=== PATIENT | female | born 1950 | race Caucasian/White ===

== ENCOUNTER → 2017-12-21 | Outpatient (CLI) | payer OTHER | END | disposition home or self-care (01) | LOC: PLD 13:30 → LAB SHORT 13:30 | DX: D22.5 Melanocytic nevi of trunk (principal); D22.62 Melanocytic nevi of left upper limb, including shoulder | CPT/HCPCS: 88305 ==

== ENCOUNTER → 2018-01-16 | Outpatient (CLI) | payer OTHER | END | disposition home or self-care (01) | LOC: LAB SHORT 13:13 → PLD 13:13 | DX: D22.62 Melanocytic nevi of left upper limb, including shoulder (principal); D22.5 Melanocytic nevi of trunk | CPT/HCPCS: 88305 ==

== ENCOUNTER 2019-05-27 00:49 | Inpatient (IN) | payer MEDICARE ==
[~2019-05-27] VITALS: Ht 162.6 cm; Wt 106.2 kg
[2019-05-27] MEDS ORDERED: LITH300C PO (01:05)
[2019-05-27] MEDS ORDERED: VENL25 PO (01:05)
[2019-05-27] MEDS ORDERED: Pravachol40 MG PO (01:06)
[2019-05-27] MEDS ORDERED: QVAR REDIHALE10.6 G1 INH (01:06)
[2019-05-27] MEDS ORDERED: Prinivil10 MG PO (01:06)
[2019-05-27] MEDS ORDERED: CALCIUM + D3 E1 EACH PO (01:07)
[2019-05-27] MEDS ORDERED: L-METHYLFOLATE15 MG PO (01:07)
[2019-05-27] MEDS ORDERED: GLUC500 PO (01:07)
[2019-05-27] MEDS ORDERED: CENTRUM SILVER1 EAC2 PO (01:08)
[2019-05-27] MEDS ORDERED: COQ-10100 MG PO (01:09)
[2019-05-27] MEDS ORDERED: VITAMIN D31000 UNIT PO (01:09)
[2019-05-27] MEDS ORDERED: KRILL OIL PO (01:09)
[2019-05-27] MEDS ORDERED: POTASSIUM99 MG PO (01:10)
[2019-05-27] MEDS ORDERED: Vitamin B-121000 MCG PO (01:10)
[2019-05-27] MEDS ORDERED: Aspirin EC81 MG PO (01:10)
[2019-05-27 01:15] LABS: Hemoglobin 15.8 g/dL (11.5-16.0); Mean Corpuscular HGB 32.2 pg (26.0-34.0); Mean Corpuscular HGB Conc 32.2 g/dL (31.5-36.5); Mean Corpuscular Volume 100 fL (80-100); Mean Platelet Volume 10.3 fL (9.1-12.4); Platelet Count 226 K/mm3 (150-400); RDW Coefficient Variation 13.2 % (11.7-14.2); RDW Standard Deviation 48.6 fL (35.1-46.3); White Blood Cell Count 13.54 K/mm3 (4.00-11.30)
[2019-05-27 01:34] LABS: Albumin, Blood 3.5 g/dL (3.4-5.0); Bilirubin, Total 1.3 mg/dL (0.1-1.0); Bun/Creatinine Ratio 15.1 (12.0-20.0); Calcium, Blood 9.8 mg/dL (8.5-10.1); Creatinine, Blood 1.39 mg/dL (0.40-1.00); Globulin, Blood 3.6 g/dL (2.2-4.0); Magnesium, Blood 2.2 mg/dL (1.6-2.4); Potassium, Blood 3.7 mmol/L (3.5-5.5); Total Protein, Blood 7.1 g/dL (6.4-8.2)
[2019-05-27 01:40] LABS: BAND PERCENT MAN 24 % (0-8); BASOPHILS PERCENT MAN 0 % (0-2); EOSINOPHILS ABSOLUTE MAN 0.13 K/mm3 (0.00-0.68); EOSINOPHILS PERCENT MAN 1 % (0-6); LYMPHOCYTES PERCENT MAN 3 % (21-46); METAMYELOCYTE ABSOLUTE MAN 0.27 K/mm3 (0.00-0.00); METAMYELOCYTE PERCENT MAN 2 % (0-0); MONOCYTES ABSOLUTE MAN 0.13 K/mm3 (0.16-1.47); MONOCYTES PERCENT MAN 1 % (4-13); MYELOCYTE ABSOLUTE MAN 0.13 K/mm3 (0.00-0.00); MYELOCYTE PERCENT MAN 1 % (0-0); NEUTROPHILS ABSOLUTE MAN 12.45 K/mm3 (1.96-9.15); SEG NEUTROPHILS PERCENT MAN 68 % (41-73); TOTAL CELLS COUNTED 100
--- NOTE | 2019-05-27 07:18 | NUR ---
ASSUMED CARE NOTE/SHIFT SUMMARY ASSUMED CARE OF PT AT 0449, RECEVIED REPORT FROM EMILY ER NURSE. PT ARRIVED TO UNIT VIA STRETCHER, PT WAS TRANSFERED TO HOSPITAL BED USING SLIDER SHEET WITH 4 PERSON ASSISTANCE. PT IS ALERT AND ORIENTED, IS ABLE TO RECALL RECENT AND REMOTE EVENTS. PT ON RA WITH SPO2 ABOVE 90%. PT IN SINUS ARRYTHMIA. PT C/O LLQ PAIN 5/10, AND RLE 6/10. PT USED BEDPAN TO URINATE, URINE DARK YELLOW. PT ORIENTED TO ROOM, CALL LIGHT WITHIN REACH, BED AT LOWEST LEVEL. GAVE REPORT TO PEACE SANTOS.
--- NOTE | 2019-05-27 09:00 | NUR ---
BEGINNING OF SHIFT Assumed care of pt at 0700. Bedside report recieved from Heidy SANTOS. Pt A&O x 4. On room air. Lungs clear, dim in bases. SR per monitor. NPO. NG tube to LIS. liquid brown drainage from NG tube. Pt voids dark, tea colored urine into bedpan. Pt does not report pain at this time. Bed in lowest position. Call light in reach. Pt denies need at this time.
--- NOTE | 2019-05-27 11:45 | NUR ---
CALL PLACED TO [facility] This RN called to inquire about pt weightbearing status as this is not clearly stated in pt's paperwork in chart. Pt is to be non-weightbearing. Inquired if wrapping may be removed to assess skin underneath, [facility] staff stated this is allowed, however the wrap will need to be replaced.
--- NOTE | 2019-05-27 12:00 | NUR ---
DR CADENATRATE IN ROOM Inquired about orders for PT/OT as pt is supposed to be nonweightbearing for RLE. New orders provided. Pt also okay for medical floor status without telemetry.
--- NOTE | 2019-05-27 14:39 | NUR ---
UPDATE TO DR ASCENCIO / TRANSFER TO SURGICAL FLOOR Provider aware that pt is passing stool. Notified provider that pt has had 4 large liquid BMs in the last hour. Notified provider that pt received 100 mg colace this AM. Discussed CT results. Plan to send C-Diff sample. Pt working with physical therapy at this time. Plan for pt to transfer to room 210. Telephone report given to Lilibeth SANTOS.
[2019-05-27 15:14] LABS: Source, Urine Clean Catch
[2019-05-27 15:26] LABS: Blood, Urine 3+ (Neg); Glucose Qualitative, Urine Neg (Neg); Ketones, Urine 1+ (Neg); Leukocyte Esterase, Urine 1+ (Neg); Nitrite, Urine Neg (Neg); Protein, Urine 1+ (Neg); Specific Gravity, Urine 1.025 (1.003-1.022); Urobilinogen, Urine 2+ (Normal)
[2019-05-27 15:51] LABS: Bilirubin, Urine 1+ (Neg)
[2019-05-27 16:22] LABS: Appearance, Urine Cloudy (Clear); Color, Urine Brown (P-Yellow)
[2019-05-27 16:23] LABS: Other Crystals Mod /hpf
[2019-05-27 16:25] LABS: Bacteria Mod /hpf; Squamous Epithelial Cells Mod /hpf (Few)
--- NOTE | 2019-05-27 18:31 | NUR ---
SUMMARY SINCE ARRIVAL TO UNIT AROUND 1500, PT HAS BEEN SLEEPY. REPORTS IT TO DOING THERAPY AND UP TO USE BSC. PT HAS BECOME FORGETFUL THIS AFTERNOON, WHEN ASKED ABOUT IT SHE DESCRIBES HERSELF "LOOPY". WAS FOUND ON THE BSC ONCE WITHOUT ASSISTANCE AND STATED SHE HAD "SOME DIFFICULTY" GETTING THERE [facility] WHEN SHE WOKE UP SHE DIDN'T KNOW WHERE SHE WAS AT FIRST. WHEN ASKED IF THIS HAS HAPPENED IN THE PAST SHE STATES IT DOES HAPPEN AT HOME SOMETIMES WHERE SHE IS DISORIENTED WHEN WAKING. BED ALARM HAS BEEN IN USE SINCE. PT HAD VERY LARGE FORMED BM. NGT PUTING OUT SCANT AMOUNT.
--- NOTE | 2019-05-28 04:25 | NUR ---
SHIFT SUMMARY AAOX4 VSS. PATIENT HAS BEEN UP TO BSC WITH FWW AND GB. 1 SMALL LOOSE BM TONIGHT. PT REPORTED FEELING MUCH BETTER SINCE BM DURING DAY SHIFT. DENIED PAIN OR NAUSEA DURING SHIFT. BOWEL SOUNDS WERE ACTIVE, REPORTS PASSING GAS. NG TUBE OUTPUT IS BROWN LIQUID. SMALL AMOUNT DURING SHIFT. TOLERATING ICE CHIPS WELL. NO MOMENTS OF CONFUSION DURING NIGHT.
[2019-05-28 04:53] LABS: BASOPHILS ABSOLUTE AUTO 0.04 K/mm3 (0.00-0.23); BASOPHILS PERCENT AUTO 0 % (0-2); Hematocrit 38.9 % (33.0-51.0); Hemoglobin 12.9 g/dL (11.5-16.0); LYMPHOCYTES PERCENT AUTO 8 % (21-46); MONOCYTES ABSOLUTE AUTO 0.57 K/mm3 (0.16-1.47); MONOCYTES PERCENT AUTO 5 % (4-13); Mean Corpuscular HGB 32.5 pg (26.0-34.0); Mean Corpuscular HGB Conc 33.2 g/dL (31.5-36.5); Mean Corpuscular Volume 98 fL (80-100); Mean Platelet Volume 11.2 fL (9.1-12.4); Platelet Count 180 K/mm3 (150-400); RDW Coefficient Variation 13.4 % (11.7-14.2); RDW Standard Deviation 47.9 fL (35.1-46.3); Red Blood Cell Count 3.97 M/mm3 (3.80-5.20)
[2019-05-28 05:02] LABS: EOSINOPHILS ABSOLUTE AUTO 0.08 K/mm3 (0.00-0.68); EOSINOPHILS PERCENT AUTO 1 % (0-6); IMMATURE GRAN ABSOLUTE AUTO 0.05 K/mm3 (0.00-0.10); IMMATURE GRAN PERCENT AUTO 0 % (0-1); NEUTROPHILS ABSOLUTE AUTO 9.96 K/mm3 (1.96-9.15); NEUTROPHILS PERCENT AUTO 86 % (41-73)
[2019-05-28 05:13] LABS: Alanine Aminotransfer (ALT/SGP 49 U/L (12-78); Albumin, Blood 2.3 g/dL (3.4-5.0); Albumin/Globulin Ratio 0.7 (0.8-1.8); Alk Phos 94 U/L (50-136); Anion Gap 9 mmol/L (6-16); Aspartate Aminotrans (AST/SGOT 47 U/L (12-37); Bilirubin, Total 0.7 mg/dL (0.1-1.0); Blood Urea Nitrogen 23 mg/dL (8-24); Bun/Creatinine Ratio 27.4 (12.0-20.0); CO2, Blood 22 mmol/L (21-32); Calcium, Blood 7.4 mg/dL (8.5-10.1); Chloride, Blood 112 mmol/L (98-108); Creatinine, Blood 0.84 mg/dL (0.40-1.00); Globulin, Blood 3.1 g/dL (2.2-4.0); Glomerular Filtration Rate >60 (60-); Glucose, Blood 110 mg/dL (70-99); Potassium, Blood 3.6 mmol/L (3.5-5.5); Sodium, Blood 143 mmol/L (136-145); Total Protein, Blood 5.4 g/dL (6.4-8.2)
[2019-05-28 05:19] LABS: BAND PERCENT MAN 27 % (0-8); BASOPHILS PERCENT MAN 0 % (0-2); EOSINOPHILS PERCENT MAN 0 % (0-6); LYMPHOCYTES ABSOLUTE MAN 0.23 K/mm3 (0.84-5.20); LYMPHOCYTES PERCENT MAN 2 % (21-46); METAMYELOCYTE ABSOLUTE MAN 0.11 K/mm3 (0.00-0.00); METAMYELOCYTE PERCENT MAN 1 % (0-0); MONOCYTES ABSOLUTE MAN 0.11 K/mm3 (0.16-1.47); MONOCYTES PERCENT MAN 1 % (4-13); NEUTROPHILS ABSOLUTE MAN 11.13 K/mm3 (1.96-9.15); SEG NEUTROPHILS PERCENT MAN 69 % (41-73); TOTAL CELLS COUNTED 100
--- NOTE | 2019-05-28 13:01 | NUR ---
Patient gave permission to see medical charts to lyndon suero Student Nurse on 05/28/19 at 13:00.
--- NOTE | 2019-05-28 14:27 | NUR ---
NG TUBE REMOVED PER DR. DOTY. PT TOLERATED WELL. WILL CONTINUE TO MONITOR.
--- NOTE | 2019-05-28 17:50 | NUR ---
SHIFT SUMMARY PAIN HAS BEEN MANAGED WITH PO PAIN MEDICATION. PT'S NG TUBE CAME OUT THIS AFTERNOON AFTER DR. DOTY CONSULTED. SHE IS TOLERATING CLEAR LIQUIDS. PT IS A 1 PERSON ASSIST WITH GAIT BELT AND WALKER. VSS. WILL MONITOR UNTIL REPORT TO ONCOMING RN.
[2019-05-29 04:49] LABS: Hematocrit 33.9 % (33.0-51.0); Hemoglobin 11.3 g/dL (11.5-16.0); Mean Corpuscular HGB 32.5 pg (26.0-34.0); Mean Corpuscular HGB Conc 33.3 g/dL (31.5-36.5); Mean Corpuscular Volume 97 fL (80-100); Mean Platelet Volume 10.7 fL (9.1-12.4); Platelet Count 165 K/mm3 (150-400); RDW Coefficient Variation 13.2 % (11.7-14.2); RDW Standard Deviation 46.7 fL (35.1-46.3); Red Blood Cell Count 3.48 M/mm3 (3.80-5.20); White Blood Cell Count 11.08 K/mm3 (4.00-11.30)
[2019-05-29 05:06] LABS: Alanine Aminotransfer (ALT/SGP 39 U/L (12-78); Albumin, Blood 2.1 g/dL (3.4-5.0); Albumin/Globulin Ratio 0.7 (0.8-1.8); Alk Phos 88 U/L (50-136); Anion Gap 8 mmol/L (6-16); Aspartate Aminotrans (AST/SGOT 31 U/L (12-37); Bilirubin, Total 0.8 mg/dL (0.1-1.0); Blood Urea Nitrogen 15 mg/dL (8-24); Bun/Creatinine Ratio 22.2 (12.0-20.0); CO2, Blood 21 mmol/L (21-32); Calcium, Blood 7.4 mg/dL (8.5-10.1); Chloride, Blood 114 mmol/L (98-108); Creatinine, Blood 0.68 mg/dL (0.40-1.00); Globulin, Blood 3.2 g/dL (2.2-4.0); Glomerular Filtration Rate >60 (60-); Glucose, Blood 89 mg/dL (70-99); Potassium, Blood 3.5 mmol/L (3.5-5.5); Sodium, Blood 143 mmol/L (136-145); Total Protein, Blood 5.3 g/dL (6.4-8.2)
[2019-05-29 05:59] LABS: BAND PERCENT MAN 6 % (0-8); BASOPHILS ABSOLUTE MAN 0.11 K/mm3 (0.00-0.23); BASOPHILS PERCENT MAN 1 % (0-2); EOSINOPHILS ABSOLUTE MAN 0.22 K/mm3 (0.00-0.68); EOSINOPHILS PERCENT MAN 2 % (0-6); LYMPHOCYTES ABSOLUTE MAN 1.32 K/mm3 (0.84-5.20); LYMPHOCYTES PERCENT MAN 12 % (21-46); MONOCYTES ABSOLUTE MAN 0.66 K/mm3 (0.16-1.47); MONOCYTES PERCENT MAN 6 % (4-13); NEUTROPHILS ABSOLUTE MAN 8.75 K/mm3 (1.96-9.15); SEG NEUTROPHILS PERCENT MAN 73 % (41-73); TOTAL CELLS COUNTED 100
--- NOTE | 2019-05-29 06:18 | NUR ---
PT VSS T/O NIGHT. PAIN MGD W/ADVIL W/REP RELIEF. SPLINT TO RLE INTACT. PT REP NO CHANGE IN SENSATION-STILL REP N/T TO R FOOT, CAP REFILL WNL. RLE ELEVATED IN BED. PT HAD NO C/O N/V, IS HAVING UNFORMED BM. IVF CONT PER ORDERS. PT USING CALL LIGHT FOR ASSISTANCE, WILL CONT TO MONITOR UNTIL REP GIVEN TO ONCOMING RN.
--- NOTE | 2019-05-29 09:49 | NUR ---
dr velatrate by to see pt dr marc also by earlier ok to adv to full diet for today will monitor how she sandra this diet will start at 1200 pt sandra cl diet for breakfast no nausea
--- NOTE | 2019-05-29 10:23 | NUR ---
mychal given new order physical therapy working with pt
--- NOTE | 2019-05-29 12:46 | NUR ---
pt stated she got full with the meal no nausea pt had loose brown bm
--- NOTE | 2019-05-29 14:28 | NUR ---
pt stated that her abd still feels ok after food
--- NOTE | 2019-05-29 18:50 | NUR ---
ASSISTED PT BACK INTO BED AFTER USING BSC PT VOIDED ONLY STATED SHE HAS HAD A FEW TIMES TODAY OF PASSING FLATUS WITHOUT STOOL ALSO ORDERED MORE SOUP
[2019-05-30 04:44] LABS: Anion Gap 7 mmol/L (6-16); Blood Urea Nitrogen 12 mg/dL (8-24); CO2, Blood 23 mmol/L (21-32); Calcium, Blood 7.8 mg/dL (8.5-10.1); Chloride, Blood 114 mmol/L (98-108); Creatinine, Blood 0.71 mg/dL (0.40-1.00); Glomerular Filtration Rate >60 (60-); Glucose, Blood 96 mg/dL (70-99); Potassium, Blood 3.3 mmol/L (3.5-5.5); Sodium, Blood 144 mmol/L (136-145)
--- NOTE | 2019-05-30 05:10 | NUR ---
SHIFT SUMMARY PT IS A/O X4. NEEDS STANDBY ASSIST W/ WALKER TO COMMODE. PT IS TOLERATING HER FULL LIQUID DIET, PASSING GAS AND HAVING BM'S AND VOIDING. DURING THE SHIFT HER R LEG HAS BEEN ELEVATED WITH ICE APPLIED. PT HAS BEEN RESTING QUIETLY MOST OF THE NIGHT. PAIN MANAGED WITH IBUPROFEN PER ORDERS. ASSISTED WITH ADL'S PRN.
[2019-05-30] MEDS ORDERED: ACET325 PO (10:23)
[2019-05-30] MEDS ORDERED: Banatrol1 EACH PO (10:24)
[2019-05-30] MEDS ORDERED: BISA10S PR (10:26)
[2019-05-30] MEDS ORDERED: Oyster Shell C500 MG PO (10:27)
[2019-05-30] MEDS ORDERED: DOC250 PO (10:27)
[2019-05-30] MEDS ORDERED: CEFP200 PO (10:27)
[2019-05-30] MEDS ORDERED: Norco 5-325 Ta1 EACH PO (10:28)
[2019-05-30] MEDS ORDERED: HYDR10 PO (10:28)
[2019-05-30] MEDS ORDERED: METR500 PO (10:29)
[2019-05-30] MEDS ORDERED: IBUP600 PO (10:29)
[2019-05-30] MEDS ORDERED: ONDA4ODT SL (10:30)
[2019-05-30] MEDS ORDERED: GAVILAX17 GM PO (10:42)
--- NOTE | 2019-05-30 14:44 | NUR ---
DISCHARGE: PT EATING AND DRINKING, VOIDING, HAVING BM'S. PT REPORTS PAIN WELL CONTROLLED WITH PO PAIN MEDICATION. PT/FAMILY REPORTS UNDERSTANDING OF DISCHARGE INSTRUCTIONS. PT WAS ASSISTED WITH DIET BY [employer] EARLIER TODAY. PT REPORTS HAVING APPR EQUIP AT HOME. SCRIPTS FAXED TO PHARMACY OF PT'S CHOICE EXCEPT PAIN SCRIPT WHICH WAS SENT WITH PT/FAMILY. PT'S BELONGINGS SENT WITH PT.
== END 2019-05-30 14:44 | disposition home health service (06) | DRG 872 ==
LOC: ER 00:49 → SURS 04:26 → ICUW 04:26 → SURS 15:08
PROVIDERS: Emergency Medicine; Family Medicine; ADMIT Internal Medicine
DX: A41.9 Sepsis, unspecified organism (principal); N17.9 Acute kidney failure, unspecified; K56.609 Unspecified intestinal obstruction, unspecified as to partial versus complete obstruction; A09 Infectious gastroenteritis and colitis, unspecified; K56.0 Paralytic ileus; R65.20 Severe sepsis without septic shock; N18.3 Chronic kidney disease, stage 3 (moderate); I12.9 Hypertensive chronic kidney disease with stage 1 through stage 4 chronic kidney disease, or unspecified chronic kidney disease; E86.0 Dehydration; I95.9 Hypotension, unspecified; F41.9 Anxiety disorder, unspecified; F31.9 Bipolar disorder, unspecified; E66.01 Morbid (severe) obesity due to excess calories; Z68.39 Body mass index [BMI] 39.0-39.9, adult; Z79.82 Long term (current) use of aspirin
CPT/HCPCS: 36415; 74018; 74176; 80048; 80053; 81001; 83605; 83690; 83735; 84145; 85025; 87040; 87086; 87493; 93005; 93010; 94640; 94760; 96361; 96365; 97110; 97116; 97162; 97166; 97530; 97535; 99285-25; A9270; J0696; J1650; J2543; J3010; J7030; J7050

== ENCOUNTER → 2020-03-09 | Outpatient (CLI) | payer MEDICARE ==
[~2020-03-09] MED LIST: ACET325 PO; Aspirin EC81 MG PO; BISA10S PR; Banatrol1 EACH PO; CALCIUM + D3 E1 EACH PO; CEFP200 PO; CENTRUM SILVER1 EAC2 PO; COQ-10100 MG PO; DOC250 PO; GAVILAX17 GM PO; GLUC500 PO; HYDR10 PO; IBUP600 PO; KRILL OIL PO; L-METHYLFOLATE15 MG PO; LITH300C PO; METR500 PO; Norco 5-325 Ta1 EACH PO; ONDA4ODT SL; Oyster Shell C500 MG PO; POTASSIUM99 MG PO; PROAIR DIGIHAL90 MCG; Pravachol40 MG PO; Prinivil10 MG PO; QVAR REDIHALE10.6 G1 INH; VENL25 PO; VITAMIN D31000 UNIT PO; Vitamin B-121000 MCG PO
== END | disposition home or self-care (01) ==
LOC: LAB SHORT 13:28 → LAB 13:28
DX: A49.9 Bacterial infection, unspecified (principal)
CPT/HCPCS: 87070; 87205

== ENCOUNTER → 2020-11-13 | Outpatient (CLI) | payer MEDICARE ==
[2020-11-13 13:17] LABS: BASOPHILS ABSOLUTE AUTO 0.08 K/mm3 (0.00-0.23); BASOPHILS PERCENT AUTO 1 % (0-2); EOSINOPHILS PERCENT AUTO 4 % (0-6); Hematocrit 47.6 % (33.0-51.0); Hemoglobin 15.7 g/dL (11.5-16.0); IMMATURE GRAN ABSOLUTE AUTO 0.01 K/mm3 (0.00-0.10); IMMATURE GRAN PERCENT AUTO 0 % (0-1); LYMPHOCYTES ABSOLUTE AUTO 2.24 K/mm3 (0.84-5.20); LYMPHOCYTES PERCENT AUTO 32 % (21-46); MONOCYTES ABSOLUTE AUTO 0.47 K/mm3 (0.16-1.47); MONOCYTES PERCENT AUTO 7 % (4-13); Mean Corpuscular HGB 32.4 pg (26.0-34.0); Mean Corpuscular Volume 98 fL (80-100); Mean Platelet Volume 10.6 fL (9.1-12.4); NEUTROPHILS ABSOLUTE AUTO 3.84 K/mm3 (1.96-9.15); NEUTROPHILS PERCENT AUTO 55 % (41-73); Platelet Count 226 K/mm3 (150-400); RDW Coefficient Variation 12.9 % (11.7-14.2); RDW Standard Deviation 46.5 fL (35.1-46.3); Red Blood Cell Count 4.85 M/mm3 (3.80-5.20); White Blood Cell Count 6.94 K/mm3 (4.00-11.30)
[2020-11-13 13:34] LABS: Albumin, Blood 4.1 g/dL (3.4-5.0); Albumin/Globulin Ratio 1.2 (0.8-1.8); Bilirubin, Total 0.3 mg/dL (0.1-1.0); Bun/Creatinine Ratio 25.5 (12.0-20.0); Calcium, Blood 9.4 mg/dL (8.5-10.1); Creatinine, Blood 0.98 mg/dL (0.40-1.00); Free Thyroxine 0.87 ng/dL (0.70-1.60); Globulin, Blood 3.5 g/dL (2.2-4.0); Potassium, Blood 4.1 mmol/L (3.5-5.5); Thyroid Stimulating Hormone 1.858 uIU/mL (0.360-4.800); Total Protein, Blood 7.6 g/dL (6.4-8.2)
== END | disposition home or self-care (01) ==
LOC: LAB 13:01 → LAB SHORT 13:01 → LAB EV 13:01
PROVIDERS: General Practice
DX: R53.81 Other malaise (principal); G60.9 Hereditary and idiopathic neuropathy, unspecified
CPT/HCPCS: 80053; 82607; 82746; 84439; 84443; 85025

== ENCOUNTER → 2022-01-11 | Outpatient (CLI) | payer MEDICARE ==
[2022-01-12 13:40] LABS: Stool Occult Bld Immuno 1 Negative (NEGATIVE)
== END | disposition home or self-care (01) ==
LOC: LAB SHORT 13:24 → LAB FUT 12-08 11:35
PROVIDERS: Family Medicine
DX: Z12.11 Encounter for screening for malignant neoplasm of colon (principal)
CPT/HCPCS: 82274

== ENCOUNTER → 2022-06-06 | Outpatient (CLI) | payer MEDICARE | END | disposition home or self-care (01) | LOC: LAB SHORT 12:40 → LAB 12:40 | DX: R35.0 Frequency of micturition (principal) | CPT/HCPCS: 87086 ==

== ENCOUNTER 2024-06-26 06:38 | Day surgery (SDC) | payer OTHER ==
[~2024-06-26] VITALS: Ht 162.6 cm; Wt 98.6 kg
[~2024-06-26 06:38] MED LIST changes: +ALBU90OI INH; +BACL10 PO; +BACLOFEN5 M1 PO; +BUDESONIDE-FO10.2 G2 INH; +Balanced Salt Epinephrine Irrigation Solution 500 mL IR SCH; +CLARITIN-D 121 EAC1 PO; +CYMBALTA30 M1 PO; +DIETARY SUPPLEMENT PO; +Diazepam 2 MG Tab PO PRN; +Diazepam 5 MG Tab PO PRN; +Diazepam 5 MG Tab PO SCH; +EZET10 PO; +GABA100 PO; +LATUDA PO; +LISI10 PO; +Lidocaine HCl/Pf 1% 5 ML VIAL XX SCH; +Moxifloxacin HCL 0.5 MG/0.1 ML 0.4MLSYR LEFTEYE SCH; +Ondansetron 4 MG SoluTab MM PRN; +PHENYLEPHRINE\\TROPICAMIDE\\TETRACAINE OPHTHALMIC DILATING SOLN LEFTEYE PRN; +Phentermine HCl30 MG PO; +Povidone-Iodine 450 DROP/30 ML Solution LEFTEYE SCH; +Povidone-Iodine 450 DROP/30 ML Solution ONE; +SYMBICORT 160-4.6 GM INH; +Tetracaine HCl/Pf 0.5% Opth Soln 4 ml ONE; +Triamcinolone Inj Susp 40 MG / ML 1ML Vial INJ SCH; +diazePAM 2 MG,diazePAM 5 MG PO SCH
[2024-06-26] MEDS ORDERED: Diazepam 10 MG Tab ONE (06:41)
[2024-06-26] MEDS ORDERED: Lidocaine HCl/Pf 1% 5 ML VIAL ONE (06:41)
[2024-06-26] MEDS ORDERED: Triamcinolone Inj Susp 40 MG / ML 1ML Vial ONE (06:41)
--- NOTE | 2024-06-26 07:24 | NUR ---
06/26/24 0724 Ade Kaur PATIENT REPORTED ANXIETY AT 3/10 PRIOR TO ADMINISTRATION OF 10MG PO VALIUM AT 0702. REASSESSED AND PATIENT REPORTS ANXIETY STILL AT 3/10 AND STATES SHE DOES NOT "FEEL THAT NERVOUS"
[2024-06-26 08:15] VITALS: BP 119/65
--- NOTE | 2024-06-26 08:33 | NUR ---
06/26/24 0833 Judy Dumont D/Anna INSTRUCTIONS GIVEN TO PT & PT'S , UNDERSTANDING VERBALIZED. PT HAS ALL BELONGINGS W/ HER. PT DENIES PAIN/NAUSEA, TOLERATING JUICE W/O COMPLAINT. VSS, ON RA. PT WHEELED TO PRIVATE VEHICLE, STEADY GAIT NOTED UPON TRANSFER FROM TO VEHICLE. NO VISIBLE SIGNS OF DISTRESS NOTED.
== END 2024-06-26 08:30 | disposition home or self-care (01) ==
LOC: ORSCSDS 06:38
PROVIDERS: Ophthalmology
PROC: 08RK3JZ Replacement of Left Lens with Synthetic Substitute, Percutaneous Approach (ICD-10-PCS; principal; 2024-06-26 08:00)
DX: H25.812 Combined forms of age-related cataract, left eye (principal); Z96.1 Presence of intraocular lens; I25.10 Atherosclerotic heart disease of native coronary artery without angina pectoris; I10 Essential (primary) hypertension; G47.33 Obstructive sleep apnea (adult) (pediatric); J45.909 Unspecified asthma, uncomplicated; E78.5 Hyperlipidemia, unspecified; K57.30 Diverticulosis of large intestine without perforation or abscess without bleeding; E66.9 Obesity, unspecified; Z68.37 Body mass index [BMI] 37.0-37.9, adult; F17.210 Nicotine dependence, cigarettes, uncomplicated; Z79.899 Other long term (current) drug therapy
CPT/HCPCS: A9270; J2003; J3301; V2632

== ENCOUNTER 2024-07-23 13:55 | Day surgery (SDC) | payer OTHER ==
[~2024-07-23] VITALS: Ht 162.6 cm; Wt 97.9 kg
[~2024-07-23 13:55] MED LIST changes: +Atropine Sulfate 0.1 MG/ML 10ML SYR ONE; -Balanced Salt Epinephrine Irrigation Solution 500 mL IR SCH; -Diazepam 2 MG Tab PO PRN; -Diazepam 5 MG Tab PO PRN; -Diazepam 5 MG Tab PO SCH; +Glycopyrrolate 0.2 MG/ML 1MLVIAL ONE; +Lactated Ringer's 1,000 ML IV ONE; +Lidocaine 2% 5 ML SDV ONE; +Lidocaine HCl/Pf 1% 5 ML VIAL ONE; -Lidocaine HCl/Pf 1% 5 ML VIAL XX SCH; -Moxifloxacin HCL 0.5 MG/0.1 ML 0.4MLSYR LEFTEYE SCH; -Ondansetron 4 MG SoluTab MM PRN; +Ondansetron HCl 2 MG / ML 2ML Vial ONE; -PHENYLEPHRINE\\TROPICAMIDE\\TETRACAINE OPHTHALMIC DILATING SOLN LEFTEYE PRN; -Povidone-Iodine 450 DROP/30 ML Solution LEFTEYE SCH; -Povidone-Iodine 450 DROP/30 ML Solution ONE; -Tetracaine HCl/Pf 0.5% Opth Soln 4 ml ONE; -Triamcinolone Inj Susp 40 MG / ML 1ML Vial INJ SCH; -diazePAM 2 MG,diazePAM 5 MG PO SCH; +ePHEDrine Sulfate 50 MG/ML 1ML Injection ONE
[2024-07-23] MEDS ORDERED: Lactated Ringer's 1,000 ML IV ONE (14:30)
[2024-07-23] MEDS ORDERED: propofoL 50 ML IV ONE (14:32)
--- NOTE | 2024-07-23 14:48 | NUR ---
07/23/24 1448 Roxanne Calvert PT. DENIES ANY PAIN.
[2024-07-23 16:23] VITALS: BP 110/68
== END 2024-07-23 16:00 | disposition home or self-care (01) ==
LOC: ORSCSDS 13:55
PROVIDERS: Surgery
PROC: 0DBP8ZX Excision of Rectum, Via Natural or Artificial Opening Endoscopic, Diagnostic (ICD-10-PCS; principal; 2024-07-23 15:15)
DX: Z12.11 Encounter for screening for malignant neoplasm of colon (principal); D12.8 Benign neoplasm of rectum; G47.33 Obstructive sleep apnea (adult) (pediatric); K57.30 Diverticulosis of large intestine without perforation or abscess without bleeding; J45.909 Unspecified asthma, uncomplicated; Z79.899 Other long term (current) drug therapy; I10 Essential (primary) hypertension; Z87.891 Personal history of nicotine dependence
CPT/HCPCS: 88305; J0461; J2003; J2405; J2704; J7120